=== PATIENT | female | born 1965 | race Caucasian/White ===

== ENCOUNTER 2019-01-17 09:00 | Outpatient (CLI) | payer OTHER ==
[2013-01-30 21:49] VITALS: BMI 23.7
[~2019-01-17 09:00] MED LIST: BIAXIN 500 MG500 MG PO; COZAAR100 MG PO; MOTRIN800 MG PO; PERCOCET 10/3251 TA1 PO; PROZAC20 MG PO; VIVELLE-DOT 00.05 MG TD
== END 2019-01-17 10:00 | disposition home or self-care (01) ==
LOC: D.MAMMO 09:00
PROVIDERS: ATTEND Family Medicine
DX: Z12.31 Encounter for screening mammogram for malignant neoplasm of breast (principal)